=== PATIENT | male | born 1955 | race Caucasian/White ===

== ENCOUNTER → 2017-02-01 | Outpatient (REF) ==
--- NOTE | 2017-02-01 11:21 | REP ---
LUMBAR SPINE PARTIAL: 02/01/2017. No prior study. Clinical history: back pain. Findings: Three views show normal lordosis. There is some facet arthritis at L4-5 and L5-S1. There is a few millimeters of anterolisthesis of L4 on L5 based on that facet arthritis. There is no spondylolysis. Pedicles, spinous and transverse processes are intact. The disc space heights slightly narrowed L4-5 and L5-S1 and normal above. SI joints, sacral ala and foramina intact. Impression: 1. Degenerative disc disease with slight disc space narrowing at L4-5 and L5-S1 with facet arthropathy at those same levels. No spondylolysis. 2. A few millimeters of anterolisthesis of L4 on L5 based on facet arthropathy. Signed by Reg Nascimento MD 02/01/2017 01:45 P
== END ==
LOC: M SMT 09:15
PROVIDERS: ATTEND Internal Medicine
DX: Z02.71 Encounter for disability determination (principal)